=== PATIENT | male | born 1980 | race Hispanic/Latino ===

== ENCOUNTER 2019-07-01 19:23 | Emergency (ER) | payer SELFPAY ==
[2019-07-01] MEDS ORDERED: HYDROcodone/Acetaminophen 5/325 mg Tablet ONE (20:41)
--- NOTE | 2019-07-01 21:30 | ULT ---
Venous duplex sonogram left lower extremity HISTORY: Left leg pain and edema. FINDINGS: The left common femoral vein and greater saphenous junction were evaluated along with the f emoral, deep femoral, popliteal, and posterior tibial veins. There is good color and spectral Doppler flow, compression, and augmentation. Fluid is partially seen within the suprapatellar bursa. IMPRESSION: No sonographic evidence of DVT within the left lower extremity Left knee effusion.
--- NOTE | 2019-07-01 22:09 | RAD ---
Left knee 4 views HISTORY: Left knee pain. FINDINGS: Joint spaces are preserved. Mild osteophytosis. No acute fracture, dislocation, or aggressi ve osseous erosions evident. Small amount of fluid distends the suprapatellar bursa. IMPRESSION: Small joint effusion. Cause is not evident. No acute osseous abnormalities are demonstrated.
== END 2019-07-01 22:30 | disposition home or self-care (01) ==
LOC: ERS 19:23
DX: M70.52 Other bursitis of knee, left knee (principal)